=== PATIENT | male | born 1945 | race Caucasian/White ===

== ENCOUNTER 2017-02-15 12:53 | Inpatient (IN) | payer OTHER ==
[~2017-02-15] VITALS: Ht 177.8 cm; Wt 90.0 kg
[2017-02-15 14:03] LABS: PLATELET COUNT 220 x10^3mcL (130-400); RED CELL DISTRIBUTION WIDTH 12.3 % (11.5-14.5)
[2017-02-15 14:06] LABS: CALCIUM 8.9 mg/dL (8.5-10.1); CARBON DIOXIDE 27.2 mmol/L (21-32); CHLORIDE SERUM 104 mmol/L (98-107); CREATININE SERUM 0.8 mg/dL (0.7-1.3); GLUCOSE SERUM 118 mg/dL (74-106); POTASSIUM SERUM 4.2 mmol/L (3.5-5.1); SODIUM SERUM 139 mmol/L (136-145)
[2017-02-15 14:11] LABS: ALBUMIN 3.3 g/dL (3.4-5.0); ALKALINE PHOSPHATASE 69 U/L (46-116); ALT/SGPT 99 U/L (16-63); AST/SGOT 48 U/L (15-37); BILIRUBIN TOTAL 0.4 mg/dL (0.20-1.00); TOTAL PROTEIN, SERUM 6.9 g/dL (6.4-8.2)
[2017-02-15] MEDS ORDERED: METOPROLOL TART50 MG PO (15:32)
[2017-02-15] MEDS ORDERED: PROZAC20 MG PO (15:32)
[2017-02-15] MEDS ORDERED: SEROQUEL100 MG PO (15:32)
[2017-02-15] MEDS ORDERED: SIMVASTATIN20 M1 PO (15:33)
[2017-02-15] MEDS ORDERED: PLAVIX75 M1 PO (15:33)
[2017-02-15] MEDS ORDERED: LISINOPRIL40 MG PO (15:33)
[2017-02-15] MEDS ORDERED: PANTOPRAZOLE SO40 M1 PO (15:33)
[2017-02-15] MEDS ORDERED: KEPPRA500 MG PO (15:34)
[2017-02-15] MEDS ORDERED: REMERON30 MG PO (15:34)
[2017-02-15 16:23] VITALS: BP 163/71
[2017-02-15 16:27] LABS: T3 TOTAL 0.86 ng/mL
[2017-02-15 16:40] LABS: BAND NEUTROPHIL 3 % (0-10); MONOCYTE 5 % (0-7); SEGMENTED NEUTROPHILS 44 % (37-75)
[2017-02-15 16:41] LABS: PLATELET MORPHOLOGY PLATELETS NORMAL; rbc morphology (normal/abnorm) NORMAL (NORMAL)
[2017-02-15 17:01] LABS: PHOSPHOROUS 3.9 mg/dL (2.5-4.9)
[2017-02-15 17:08] LABS: CHOLESTEROL/HDL RATIO 2.6
[2017-02-15 18:14] LABS: FREE T4 0.96 ng/dL (0.76-1.46); FREE THYROXINE INDEX 2.4 ug/dL (1.4-4.5); T4(THYROXINE) 6.2 ug/dL (4.7-13.3)
[2017-02-15 20:14] LABS: UA SPECIFIC GRAVITY 1.025 (1.005-1.035); microscopic required? YES; urine erythrocyte NEGATIVE (NEGATIVE)
[2017-02-15 21:14] VITALS: BP 137/74
[2017-02-16 03:54] LABS: BASOPHIL % 1.2 % (0-2); PLATELET COUNT 179 x10^3mcL (130-400); RED CELL DISTRIBUTION WIDTH 13.1 % (11.5-14.5)
[2017-02-16 04:01] LABS: CALCIUM 8.7 mg/dL (8.5-10.1); CARBON DIOXIDE 24.9 mmol/L (21-32); CHLORIDE SERUM 106 mmol/L (98-107); CREATININE SERUM 0.7 mg/dL (0.7-1.3); GLUCOSE SERUM 134 mg/dL (74-106); POTASSIUM SERUM 4.1 mmol/L (3.5-5.1); SODIUM SERUM 140 mmol/L (136-145)
[2017-02-16 05:49] VITALS: BP 159/75
[2017-02-16 10:06] VITALS: BP 163/97
[2017-02-16 13:45] VITALS: BP 130/68
[2017-02-16] MEDS ORDERED: XARELTO15 M1 GT (15:35)
[2017-02-16] MEDS ORDERED: XARELTO20 M1 PO (15:36)
[2017-02-16 15:52] VITALS: BP 130/68
== END 2017-02-16 20:39 | disposition home or self-care (01) | DRG 299 ==
LOC: ED 12:53 → DU 15:01
PROVIDERS: Emergency Medicine; ADMIT Family Medicine
DX: I82.621 Acute embolism and thrombosis of deep veins of right upper extremity (principal); N17.0 Acute kidney failure with tubular necrosis; E44.1 Mild protein-calorie malnutrition; I82.411 Acute embolism and thrombosis of right femoral vein; F32.9 Major depressive disorder, single episode, unspecified; Z88.3 Allergy status to other anti-infective agents; Z86.73 Personal history of transient ischemic attack (TIA), and cerebral infarction without residual deficits; E11.9 Type 2 diabetes mellitus without complications; I10 Essential (primary) hypertension; Z87.891 Personal history of nicotine dependence; Z68.28 Body mass index [BMI] 28.0-28.9, adult
CPT/HCPCS: 83880; 84439; 90658; 90732; J1644; J7030; Q0092